=== PATIENT | female | born 1955 | race Caucasian/White ===

== ENCOUNTER 2020-11-21 17:07 | Inpatient (IN) | payer SELFPAY ==
[2020-11-21] MEDS ORDERED: Acetaminophen/HYDROcodone 325-5 MG Tab PO PRN (17:38)
[2020-11-21] MEDS ORDERED: Acetaminophen 325 MG Tab PO PRN (17:38)
--- NOTE | 2020-11-21 18:12 | PCM.HP.2 ---
H&P History of Present Illness - General Date of Service: 11/21/20 Admit Problem/Dx: Admission Diagnosis/Problem Admission Diagnosis/Problem Encephalopathy Source of Information: Patient History Limitations: Reports: No Limitations - History of Present Illness Initial Comments - Free Text/Narative: Flower is a 65-year-old female who presented to the clinic earlier today with complaints of vertigo. Her balance has been poor all day today. She did note to the clinic provider that she had stopped drinking alcohol on Friday after she had had a fall and injured the right side of her body. She was unclear if she had actually been unconscious at the time of the fall. Medical history is notable only for alcohol use disorder and tobacco use disorder. She does not regularly come in to see the doctor. Patient notes that she drinks 1 to 1.5 L of whiskey a week. She has never tried to quit drinking in the past. She denies any history of seizures or withdrawals. At this time the patient is noting her symptoms of shaking as well as a bad headache. She denies to this provider that she has had any more falls since Friday. She denies any vision changes, shortness of breath, abdominal pain. She does get some pain into her right ribs when she does try to take a deep breath in or when she tries to stand up straight. She has not been able to keep much down in the way of food over the last all days. Has had a couple episodes of emesis early in the morning stating that this is is clear to green in color. She denies any hematemesis. Denies dark stools. she is here with a very close friend of hers. He offers some collateral information on substance use. She lives at home alone but they touch base fairly often. - Related Data Allergies/Adverse Reactions: Allergies Allergy/AdvReac Type Severity Reaction Status Date / Time No Known Allergies Allergy Verified 11/21/20 17:31 Home Medications: Home Meds Calcium Citrate/Vitamin D3 [Calcium Citrate - Vit D Tablet] 1 tab PO QID 11/21/20 [History] H&P Review of Systems - Review of Systems: Review Of Systems: See Below General: Reports: Weakness HEENT: Reports: No Symptoms Pulmonary: Reports: No Symptoms Cardiovascular: Reports: No Symptoms Gastrointestinal: Reports: No Symptoms Musculoskeletal: Reports: Other (right sided rib pain) Skin: Reports: No Symptoms Psychiatric: Reports: No Symptoms Neurological: Reports: Headache, Tingling Exam - Exam Exam: See Below - Vital Signs Vital Signs: Last Vital Signs Temp 99.4 F 11/21/20 17:38 Pulse 89 11/21/20 17:38 Resp 18 11/21/20 17:38 BP 140/78 11/21/20 17:38 Pulse Ox 97 11/21/20 17:38 - Exam General: Alert, Oriented HEENT: Conjunctiva Clear, EOMI, Mucosa Moist & [place], PERRLA Neck: Supple Lungs: Clear to Auscultation, Normal Respiratory Effort Cardiovascular: Regular Rate, Regular Rhythm GI/Abdominal Exam: Normal Bowel Sounds, Soft, Non-Tender Back Exam: Other (tenderness on the right lateral ribs, no overying bruise appreciated) Extremities: Normal Inspection Skin: Warm, Dry Neurological: Cranial Nerves Intact, Reflexes Equal Bilateral, Strength Equal Bilateral, Sensation Intact Neuro Extensive - Mental Status: Alert, Oriented x3, Inattentive Neuro Extensive - Motor, Sensory, Reflexes: CN II-XII Intact, Normal Reflexes, Abnormal Gait, Other (positive rhomberg, negative pronator drift, negative heel- ivey, negative [id number], slowed hand-flap. Does have a fine tremor) Sepsis Event Note - Focused Exam Vital Signs: Vital Signs Temp Pulse Resp BP Pulse Ox 11/21/20 17:38 99.4 F 89 18 140/78 97 - Problem List (1) Wernicke encephalopathy SNOMED Code(s): 00596823 ICD Code: E51.2 - WERNICKE'S ENCEPHALOPATHY Status: Acute Current Visit: Yes (2) Alcohol use disorder SNOMED Code(s): 5104557 ICD Code: [id number] - Status: Acute Current Visit: Yes (3) Ribs, multiple fractures SNOMED Code(s): 7420259 ICD Code: S22.49XA - MULTIPLE FRACTURES OF RIBS, UNSP SIDE, INIT FOR CLOS FX Status: Acute Current Visit: Yes (4) Hypokalemia SNOMED Code(s): 04732621 ICD Code: E87.6 - HYPOKALEMIA Status: Acute Current Visit: Yes (5) Hyponatremia SNOMED Code(s): 00852247 ICD Code: E87.1 - HYPO-OSMOLALITY AND HYPONATREMIA Status: Acute Current Visit: Yes (6) Metabolic acidosis, increased anion gap SNOMED Code(s): 23912739 ICD Code: E87.2 - ACIDOSIS Status: Acute Current Visit: Yes (7) Hyperbilirubinemia SNOMED Code(s): 34981883 ICD Code: E80.6 - OTHER DISORDERS OF BILIRUBIN METABOLISM Status: Acute Current Visit: Yes (8) UTI (urinary tract infection) SNOMED Code(s): 85771785 ICD Code: N39.0 - URINARY TRACT INFECTION, SITE NOT SPECIFIED Status: Acute Current Visit: Yes (9) Macrocytic anemia SNOMED Code(s): 88224812 ICD Code: D53.9 - NUTRITIONAL ANEMIA, UNSPECIFIED Status: Acute Current Visit: Yes (10) Nicotine use disorder SNOMED Code(s): 08203381 ICD Code: F17.200 - NICOTINE DEPENDENCE, UNSPECIFIED, UNCOMPLICATED Status: Acute Current Visit: Yes Problem List Initiated/Reviewed/Updated: Yes Orders Last 24hrs: Active Orders 24 hr Category Date Time Status Admission Status [Patient Status] [ADT] Routine ADT 11/21/20 17:15 Active CIWAA Assessment [RC] Q2H Care 11/21/20 18:00 Active Dietary Supplements [RC] BIDMEALS Care 11/21/20 17:59 Ordered Notify Provider [RC] PRN Care 11/21/20 17:45 Ordered Oxygen Therapy [RC] PRN Care 11/21/20 17:38 Ordered Telemetry Monitoring [Cardiac Monitoring] [RC] 02,06,10 Care 11/21/20 17:32 Active ,14,18,22 Up With Assistance [RC] ASDIRECTED Care 11/21/20 17:38 Ordered VTE/DVT Education [RC] PER UNIT ROUTINE Care 11/21/20 17:38 Ordered Vital Signs [RC] Q4H Care 11/21/20 17:38 Ordered Regular Diet [DIET] Diet 11/21/20 Dinner Active CBC W/O DIFF,HEMOGRAM [HEME] DAILY Lab 11/22/20 07:00 Ordered COMPREHENSIVE METABOLIC PN,CMP [CHEM] DAILY Lab 11/21/20 17:45 Ordered COMPREHENSIVE METABOLIC PN,CMP [CHEM] DAILY Lab 11/22/20 07:00 Ordered COMPREHENSIVE METABOLIC PN,CMP [CHEM] DAILY Lab 11/23/20 07:00 Ordered COMPREHENSIVE METABOLIC PN,CMP [CHEM] DAILY Lab 11/24/20 07:00 Ordered MAGNESIUM [CHEM] Stat Lab 11/21/20 17:38 Ordered POTASSIUM,K [CHEM] Timed Lab 11/21/20 23:00 Ordered SODIUM,NA [CHEM] Routine Lab 11/21/20 23:00 Ordered Acetaminophen [TylenoL] Med 11/21/20 17:38 Ordered 650 mg PO Q4H PRN Acetaminophen/HYDROcodone [Dailey 325-5 MG] Med 11/21/20 17:38 Ordered 1 tab PO Q4H PRN Enoxaparin [Lovenox] Med 11/22/20 08:00 Ordered 40 mg SUBCUT DAILY Folic Acid Med 11/21/20 18:00 Ordered 1 mg PO DAILY LORazepam [Ativan] Med 11/21/20 17:45 Ordered See Protocol IV ASDIRECTED PRN Multivitamins w-Iron/Ca/FA/Min [Thera M Plus] Med 11/21/20 18:00 Ordered 1 tab PO DAILY Nicotine [Habitrol] Med 11/21/20 17:45 Ordered 14 mg TRDERM DAILY Ondansetron [Zofran ODT] Med 11/21/20 17:38 Ordered 4 mg PO Q4H PRN Potassium Acetate 40 meq Med 11/21/20 17:44 Ordered Sodium Chloride 0.9% [Normal Saline] 100 ml IV ONETIME Sodium Chloride 0.9% @ 100 MLS/HR(1000ml) Med 11/21/20 17:45 Ordered Sodium Chloride 0.9% [Normal Saline] 1,000 ml IV ASDIRECTED Sodium Chloride 0.9% [Saline Flush] Med 11/21/20 17:32 Ordered 10 ml FLUSH ASDIRECTED PRN Thiamine [Vitamin B-1] Med 11/21/20 18:00 Ordered 100 mg PO DAILY cefTRIAXone [Rocephin] Med 11/21/20 18:00 Ordered 1 gm IVPUSH DAILY Peripheral IV Insertion Adult [OM.PC] Routine Oth 11/21/20 17:32 Ordered Code Status [Resuscitation Status] Routine Resus Stat 11/21/20 17:32 Ordered Medication Orders Acetaminophen (Tylenol) 650 mg PO Q4H PRN PRN Reason: Pain (Mild 1-3)/fever Hydrocodone Bitart/Acetaminophen (Dailey 325-5 Mg) 1 tab PO Q4H PRN PRN Reason: Pain (moderate 4-6) Ceftriaxone Sodium (Rocephin) 1 gm IVPUSH DAILY [facility] Enoxaparin Sodium (Lovenox) 40 mg SUBCUT DAILY DAYSI Folic Acid (Folic Acid) 1 mg PO DAILY DAYSI Stop: 11/23/20 08:01 Sodium Chloride (Normal Saline) 1,000 mls @ 100 mls/hr IV ASDIRECTED DAYSI Potassium Acetate 40 meq/ (Sodium Chloride) 120 mls @ 25 mls/hr IV ONETIME ONE Stop: 11/21/20 22:31 Lorazepam (Ativan) 0 mg IV ASDIRECTED PRN; Protocol PRN Reason: Withdrawal Symptoms Multivitamins/Minerals (Thera M Plus) 1 tab PO DAILY [facility] Nicotine (Habitrol) 14 mg TRDERM DAILY [facility] Ondansetron HCl (Zofran Odt) 4 mg PO Q4H PRN PRN Reason: nausea, able to take PO Sodium Chloride (Saline Flush) 10 ml FLUSH ASDIRECTED PRN PRN Reason: Keep Vein Open Thiamine HCl (Vitamin B-1) 100 mg PO DAILY DAYSI Assessment/Plan Comment:: Flower is a 65-year-old female who is HD 1 for wernicke encephalopathy and electrolyte disturbances. Wernickes encephalopathy Alcohol use disorder Hypokalemia Hyponatremia Anion gap -Patient presented to the clinic this afternoon with complaints of fall and imbalance/vertigo 72 hours after alcohol cessation. Was found to have a positive Romberg sign and alcohol withdrawal tremors. She also has an associated headache and nausea/vomiting -Sodium of 122, potassium 2.3, chloride 66, CO2 of 35, anion gap 23 -Liver enzymes with an alcohol use disorder pattern with AST more than double of the ALP. She also has elevated bilirubin at 3.8. No jaundice on exam. Plan: -CIWA q2hr (now 72 hour out from last drink) -PRN ativan per protocol -Check a Mag now -NS @100mL/hr -K 40mEq/4hr -Recheck electrolytes at 2300 -B1, B9, MV daily -Tele -[facility] daily Rib Fractures (4-9?) on the right, s/p fall -Patient s/p fall on 11/18/20 while drinking. Rib xray in the clinic with fractures of multiple ribs on the right side. Patient is hemodynamically stable. No hypoxia. No flail chest. Does have significant pain with standing up and deep inspiration. Plan: -Pain control: tylneol, norco Hyperbilirubinemia -Bili total 3.8 in the clinic -May be secondary to alcoholic liver however also some concern of other etiology Plan: -Will monitor CMP daily as above Urinate tract infection -UA: Urine is cloudy with large amount of bilirubin, positive ketones, stones or blood, protein, nitrates, leukocyte esterase. A microscopic breakdown she does have 21-50 WBCs as well as many bacteria Plan: -Rocephin 1g IV daily Macrocytic Anemia -Hgb 9.4 with an MCV of 101.2 in the clinic, RBC 2.57 Plan: -Recheck CBC in the am Nicotine use disorder -cigarettes, ~1/2ppd Plan: -Tobacco replacement: patch at 14mg daily Diet: Regular DVT prophylaxis: SubQ Lovenox IV fluid: As above CODE STATUS: Full Disposition: Patient to be admitted for further evaluation and treatment of her ataxia in the setting of alcohol withdrawal. We will monitor her closely for alcohol withdrawal symptoms with CIWA scores and Ativan available. Treat her electrolyte disturbances as well with IV supplementation and a plan for recheck later tonight. Treat her UTI with IV Rocephin. Plan to recheck labs in the morning. Well get therapies on board as well. Anticipate the patient will be here for 2-3 days at a minimum. - Mortality Measure Prognosis:: Good
[2020-11-21 18:38] LABS: CHLORIDE,CL 74 mmol/L (98-107)
[2020-11-21] MEDS: Sodium Chloride 0.9% 1,000 ML IV SCH (18:40)
[2020-11-21 18:41] LABS: SODIUM,NA 119 mmol/L (136-145)
[2020-11-21] MEDS: Multivitamins with Iron/Calcium/Folic Acid/Minerals Tab PO SCH (18:45)
[2020-11-21] MEDS: Thiamine 100 MG Tab PO SCH (18:45)
[2020-11-21] MEDS: Folic Acid 1 MG Tab PO SCH (18:46)
[2020-11-21] MEDS: cefTRIAXone 1 GM Vial IVPUSH SCH (18:46)
[2020-11-21] MEDS: Nicotine 14 MG/24 Hr Patch TRDERM SCH ×2 (18:47→19:24)
[2020-11-21] MEDS: Magnesium Oxide 400 MG Tab PO SCH ×2 (18:47→21:47)
[2020-11-21] MEDS: Sodium Chloride 0.9% 10 ML Syringe FLUSH PRN (18:56)
[2020-11-21] MEDS: Potassium Chloride Riders 50 ML IV SCH ×2 (19:45→23:11)
[2020-11-21] MEDS: LORazepam 2 MG/ML SDV IV PRN (21:45)
[2020-11-22] MEDS: LORazepam 2 MG/ML SDV IV PRN ×5 (02:31→19:07)
[2020-11-22] MEDS: Sodium Chloride 0.9% 1,000 ML IV SCH ×2 (04:56→13:51)
[2020-11-22 07:25] LABS: CHLORIDE,CL 86 mmol/L (98-107)
[2020-11-22 07:30] LABS: SODIUM,NA 129 mmol/L (136-145)
[2020-11-22 07:31] LABS: ANION GAP 5.5 mmol/L (5-15)
[2020-11-22] MEDS ORDERED: Enoxaparin 40 MG/0.4 ML Syringe SUBCUT SCH (08:00)
[2020-11-22] MEDS: Multivitamins with Iron/Calcium/Folic Acid/Minerals Tab PO SCH (08:44)
[2020-11-22] MEDS: Thiamine 100 MG Tab PO SCH (08:44)
[2020-11-22] MEDS: Folic Acid 1 MG Tab PO SCH (08:44)
[2020-11-22] MEDS: Nicotine 14 MG/24 Hr Patch TRDERM SCH (08:44)
[2020-11-22] MEDS: Potassium Chloride Riders 20 MEQ in Premix Bag 1 BAG IV SCH ×4 (08:48→19:05)
[2020-11-22] MEDS: Magnesium Oxide 400 MG Tab PO SCH ×3 (09:20→19:12)
--- NOTE | 2020-11-22 10:06 | PCM.PN ---
- General Info Date of Service: 11/22/20 Admission Dx/Problem (Free Text): Admission Diagnosis/Problem Admission Diagnosis/Problem Encephalopathy Subjective Update: Flower is a 65-year-old female who is hospital day 2 for treatment of Wernicke Encephalopathy, traumatic fall with multiple rib fractures, and electrolytes disturbances. She had originally present to the clinic on 11/21/20 for c/o of Vertigo. Was found to have a positive Romberg, resting tremors, and endorsed significant EtOH use (1.5L/week of Whiskey). On admission noted last drink on 11/18/20. Patient did well overnight. Electrolytes have trended upward. She is very sleeping today. Still tremulous. Still c/o headache and nausea. Did receive a couple doses of prn ativan overnight for high CIWA. She would not wake up for full ROS this morning. Nursing reports little oral intake due to nausea. She is having good urine output. No BM's yet. - Review of Systems General: Reports: No Symptoms Gastrointestinal: Reports: Nausea Neurological: Reports: Headache, Tremors - Patient Data Vitals - Most Recent: Last Vital Signs Temp 98.2 F 11/22/20 09:00 Pulse 92 11/22/20 09:00 Resp 13 11/22/20 09:00 BP 94/58 L 11/22/20 09:00 Pulse Ox 93 L 11/22/20 09:00 Weight - Most Recent: 111 lb I&O - Last 24 Hours: Intake & Output 11/21/20 11/22/20 11/22/20 22:59 06:59 14:59 Intake Total 180 0 Output Total 650 Balance 180 -650 0 Lab Results Last 24 Hours: Laboratory Results - last 24 hr 11/21/20 11/21/20 11/21/20 Range/Units 18:01 18:01 18:03 WBC (4.0-10.0) x10^3/uL RBC (4.00-5.50) x10^6/uL Hgb (12.0-16.0) g/dL Hct (33.0-47.0) % MCV (78.0-93.0) fL MCH (26.0-32.0) pg MCHC (32.0-36.0) g/dL RDW Coeff of Mino (10.0-15.0) % Plt Count (130-400) x10^3/uL Sodium 119 L* (136-145) mmol/L Potassium 2.0 L* (3.5-5.1) mmol/L Chloride 74 L (98-107) mmol/L Carbon Dioxide 38 H (21-32) mmol/L Anion Gap 9.0 (5-15) mmol/L BUN 15 (7-18) mg/dL Creatinine 0.9 (0.55-1.02) mg/dL Est Cr Clr Drug Dosing 50.19 mL/min Estimated GFR (MDRD) > 60 Glucose 111 H (74-106) mg/dL Calcium 8.0 L (8.5-10.1) mg/dL Corrected Calcium 8.96 (8.5-10.1) mg/dL Magnesium 1.2 L (1.8-2.4) mg/dL Total Bilirubin 3.9 H (0.2-1.0) mg/dL AST 137 H (15-37) U/L ALT 41 (14-59) U/L Alkaline Phosphatase 135 H (46-116) U/L Total Protein 7.0 (6.4-8.2) g/dL Albumin 2.8 L (3.4-5.0) g/dL Globulin 4.2 Albumin/Globulin Ratio 0.67 SARS CoV-2 RNA Rapid ERAN Negative (NEGATIVE) 11/21/20 11/21/20 11/22/20 Range/Units 23:07 23:07 06:51 WBC 6.7 (4.0-10.0) x10^3/uL RBC 2.21 L (4.00-5.50) x10^6/uL Hgb 8.0 L (12.0-16.0) g/dL Hct 22.5 L (33.0-47.0) % MCV 101.8 H (78.0-93.0) fL MCH 36.2 H (26.0-32.0) pg MCHC 35.6 (32.0-36.0) g/dL RDW Coeff of Mino 13.3 (10.0-15.0) % Plt Count 233 (130-400) x10^3/uL Sodium 119 L* (136-145) mmol/L Potassium 2.7 L* (3.5-5.1) mmol/L Chloride (98-107) mmol/L Carbon Dioxide (21-32) mmol/L Anion Gap (5-15) mmol/L BUN (7-18) mg/dL Creatinine (0.55-1.02) mg/dL Est Cr Clr Drug Dosing mL/min Estimated GFR (MDRD) Glucose (74-106) mg/dL Calcium (8.5-10.1) mg/dL Corrected Calcium (8.5-10.1) mg/dL Magnesium (1.8-2.4) mg/dL Total Bilirubin (0.2-1.0) mg/dL AST (15-37) U/L ALT (14-59) U/L Alkaline Phosphatase (46-116) U/L Total Protein (6.4-8.2) g/dL Albumin (3.4-5.0) g/dL Globulin Albumin/Globulin Ratio SARS CoV-2 RNA Rapid ERAN (NEGATIVE) 11/22/20 Range/Units 06:51 WBC (4.0-10.0) x10^3/uL RBC (4.00-5.50) x10^6/uL Hgb (12.0-16.0) g/dL Hct (33.0-47.0) % MCV (78.0-93.0) fL MCH (26.0-32.0) pg MCHC (32.0-36.0) g/dL RDW Coeff of Mino (10.0-15.0) % Plt Count (130-400) x10^3/uL Sodium 129 L* D (136-145) mmol/L Potassium 2.5 L* (3.5-5.1) mmol/L Chloride 86 L D (98-107) mmol/L Carbon Dioxide 40 H (21-32) mmol/L Anion Gap 5.5 (5-15) mmol/L BUN 12 (7-18) mg/dL Creatinine 0.6 (0.55-1.02) mg/dL Est Cr Clr Drug Dosing 75.29 mL/min Estimated GFR (MDRD) > 60 Glucose 95 (74-106) mg/dL Calcium 7.4 L (8.5-10.1) mg/dL Corrected Calcium 8.84 (8.5-10.1) mg/dL Magnesium 1.6 L (1.8-2.4) mg/dL Total Bilirubin 2.3 H (0.2-1.0) mg/dL AST 87 H (15-37) U/L ALT 32 (14-59) U/L Alkaline Phosphatase 103 (46-116) U/L Total Protein 5.6 L (6.4-8.2) g/dL Albumin 2.2 L (3.4-5.0) g/dL Globulin 3.4 Albumin/Globulin Ratio 0.65 SARS CoV-2 RNA Rapid ERAN (NEGATIVE) Med Orders - Current: Current Medications Acetaminophen (Tylenol) 650 mg PO Q4H PRN PRN Reason: Pain (Mild 1-3)/fever Hydrocodone Bitart/Acetaminophen ([place] 325-5 Mg) 1 tab PO Q4H PRN PRN Reason: Pain (moderate 4-6) Last Admin: 11/21/20 21:47 Dose: 1 tab Documented by: Ceftriaxone Sodium (Rocephin) 1 gm IVPUSH Q24H [facility] Last Admin: 11/21/20 18:46 Dose: 1 gm Documented by: Enoxaparin Sodium (Lovenox) 40 mg SUBCUT DAILY [facility] Last Admin: 11/22/20 08:43 Dose: Not Given Documented by: Folic Acid (Folic Acid) 1 mg PO DAILY [facility] Stop: 11/23/20 08:01 Last Admin: 11/22/20 08:44 Dose: 1 mg Documented by: Gabapentin (Neurontin) 300 mg PO TID [facility] Sodium Chloride (Normal Saline) 1,000 mls @ 100 mls/hr IV ASDIRECTED [facility] Last Infusion: 11/22/20 08:50 Dose: 120 mls/hr Documented by: Potassium Chloride 20 meq/ (Premix) 50 mls @ 25 mls/hr IV Q2H [facility] Stop: 11/22/20 12:29 Last Admin: 11/22/20 08:48 Dose: 25 mls/hr Documented by: Thiamine HCl 500 mg/ Sodium (Chloride) 105 mls @ 200 mls/hr IV TID [facility] Stop: 11/23/20 20:32 Thiamine HCl 250 mg/ Sodium (Chloride) 102.5 mls @ 200 mls/hr IV DAILY [facility] Stop: 11/29/20 08:01 Lorazepam (Ativan) 0 mg IV ASDIRECTED PRN; Protocol PRN Reason: Withdrawal Symptoms Last Admin: 11/22/20 09:12 Dose: 2 mg Documented by: Magnesium Oxide (Magnesium Oxide) 400 mg PO BID [facility] Last Admin: 11/22/20 09:20 Dose: 400 mg Documented by: Multivitamins/Minerals (Thera M Plus) 1 tab PO DAILY [facility] Last Admin: 11/22/20 08:44 Dose: 1 tab Documented by: Nicotine (Habitrol) 14 mg TRDERM DAILY [facility] Last Admin: 11/22/20 08:44 Dose: Not Given Documented by: Ondansetron HCl (Zofran Odt) 4 mg PO Q4H PRN PRN Reason: nausea, able to take PO Sodium Chloride (Saline Flush) 10 ml FLUSH ASDIRECTED PRN PRN Reason: Keep Vein Open Last Admin: 11/21/20 18:56 Dose: 10 ml Documented by: Discontinued Medications Potassium Acetate 40 meq/ (Sodium Chloride) 120 mls @ 30 mls/hr IV ONETIME ONE Stop: 11/21/20 22:44 Last Admin: 11/21/20 19:28 Dose: Not Given Documented by: Potassium Chloride (Kcl In Water 20 Meq/50 Ml) 50 mls @ 25 mls/hr IV Q2H [facility] Stop: 11/21/20 23:44 Last Infusion: 11/22/20 04:52 Dose: Infused Documented by: Magnesium Oxide (Magnesium Oxide) 400 mg PO BID [facility] Stop: 11/22/20 08:01 Last Admin: 11/22/20 09:20 Dose: Not Given Documented by: Thiamine HCl (Vitamin B-1) 100 mg PO DAILY [facility] Last Admin: 11/22/20 08:44 Dose: 100 mg Documented by: - Exam General: Alert, Mild Distress Lungs: Clear to Auscultation, Normal Respiratory Effort Cardiovascular: Regular Rate, Regular Rhythm GI/Abdominal Exam: Normal Bowel Sounds, Soft, Tender (epigastric area) Extremities: Normal Inspection Skin: Warm, Dry Psy/Mental Status: Alert, Anxious Sepsis Event Note - Evaluation Sepsis Screening Result: No Definite Risk - Focused Exam Vital Signs: Vital Signs Temp Pulse Resp BP Pulse Ox 11/22/20 09:00 98.2 F 92 13 94/58 L 93 L 11/22/20 05:00 97.8 F 78 19 140/73 93 L 11/22/20 01:00 98.3 F 88 18 97/66 90 L - Problem List & Annotations (1) Wernicke encephalopathy SNOMED Code(s): 73608089 Code(s): E51.2 - WERNICKE'S ENCEPHALOPATHY Status: Acute Current Visit: Yes (2) Alcohol use disorder SNOMED Code(s): 0981635 Code(s): DSN8091 - Status: Acute Current Visit: Yes (3) Ribs, multiple fractures SNOMED Code(s): 3316645 Code(s): S22.49XA - MULTIPLE FRACTURES OF RIBS, UNSP SIDE, INIT FOR CLOS FX Status: Acute Current Visit: Yes (4) Hypokalemia SNOMED Code(s): 43410026 Code(s): E87.6 - HYPOKALEMIA Status: Acute Current Visit: Yes (5) Hyponatremia SNOMED Code(s): 22093391 Code(s): E87.1 - HYPO-OSMOLALITY AND HYPONATREMIA Status: Acute Current Visit: Yes (6) Metabolic acidosis, increased anion gap SNOMED Code(s): 02536253 Code(s): E87.2 - ACIDOSIS Status: Acute Current Visit: Yes (7) Hyperbilirubinemia SNOMED Code(s): 96494850 Code(s): E80.6 - OTHER DISORDERS OF BILIRUBIN METABOLISM Status: Acute Current Visit: Yes (8) UTI (urinary tract infection) SNOMED Code(s): 74942783 Code(s): N39.0 - URINARY TRACT INFECTION, SITE NOT SPECIFIED Status: Acute Current Visit: Yes (9) Macrocytic anemia SNOMED Code(s): 57399351 Code(s): D53.9 - NUTRITIONAL ANEMIA, UNSPECIFIED Status: Acute Current Visit: Yes (10) Nicotine use disorder SNOMED Code(s): 14791010 Code(s): F17.200 - NICOTINE DEPENDENCE, UNSPECIFIED, UNCOMPLICATED Status: Acute Current Visit: Yes (11) Hypercapnia SNOMED Code(s): 15244310 Code(s): R06.89 - OTHER ABNORMALITIES OF BREATHING Status: Acute Current Visit: Yes - Problem List Review Problem List Initiated/Reviewed/Updated: Yes - My Orders Last 24 Hours: My Active Orders 11/21/20 17:15 Admission Status [Patient Status] [ADT] Routine 11/21/20 Dinner Regular Diet [DIET] 11/21/20 17:32 Telemetry Monitoring [Cardiac Monitoring] [RC] 02,06,,,, Sodium Chloride 0.9% [Saline Flush] 10 ml FLUSH ASDIRECTED PRN Peripheral IV Insertion Adult [OM.PC] Routine Code Status [Resuscitation Status] Routine 11/21/20 17:38 Oxygen Therapy [RC] .PRN Up With Assistance [RC] 08,20 VTE/DVT Education [RC] PER UNIT ROUTINE Vital Signs [RC] 02,,,,, Acetaminophen [TylenoL] 650 mg PO Q4H PRN Acetaminophen/HYDROcodone [Floydada 325-5 MG] 1 tab PO Q4H PRN Ondansetron [Zofran ODT] 4 mg PO Q4H PRN 11/21/20 17:45 Notify Provider [RC] .PRN LORazepam [Ativan] See Protocol IV ASDIRECTED PRN Nicotine [Habitrol] 14 mg TRDERM DAILY Sodium Chloride 0.9% [Normal Saline] 1,000 ml IV ASDIRECTED 11/21/20 17:59 Dietary Supplements [RC] ,14 11/21/20 18:00 CIWAA Assessment [RC] Q2H Folic Acid 1 mg PO DAILY Multivitamins w-Iron/Ca/FA/Min [Thera M Plus] 1 tab PO DAILY cefTRIAXone [Rocephin] 1 gm IVPUSH Q24H 11/21/20 18:24 OT Evaluation and Treatment [CONS] Routine PT Evaluation and Treatment [CONS] Routine 11/22/20 08:00 Enoxaparin [Lovenox] 40 mg SUBCUT DAILY 11/22/20 08:30 Magnesium Oxide 400 mg PO BID Potassium Chloride Riders [KCL in Water 20 MEQ/50 ML] 20 meq Premix Bag 1 bag IV Q2H 11/22/20 09:12 Thiamine [Vitamin B-1] 500 mg Sodium Chloride 0.9% [Normal Saline] 100 ml IV TID 11/22/20 11:00 POTASSIUM,K [CHEM] Routine SODIUM,NA [CHEM] Routine 11/22/20 12:00 Gabapentin [Neurontin] 300 mg PO TID 11/23/20 07:00 CBC W/O DIFF,HEMOGRAM [HEME] Routine COMPREHENSIVE METABOLIC PN,CMP [CHEM] DAILY 11/24/20 07:00 COMPREHENSIVE METABOLIC PN,CMP [CHEM] DAILY 11/24/20 08:00 Thiamine [Vitamin B-1] 250 mg Sodium Chloride 0.9% [Normal Saline] 100 ml IV DAILY - Plan Plan:: Flower is a 65-year-old female who is HD 2 for Wernicke encephalopathy and electrolyte disturbances. Wernickes encephalopathy Alcohol use disorder Hypokalemia Hyponatremia Anion gap - resolved -Patient presented to the clinic this afternoon with complaints of fall and imbalance/vertigo 72 hours after alcohol cessation. Was found to have a positive Romberg sign and alcohol withdrawal tremors. She also has an associated headache and nausea/vomiting -Electrolytes improving overnight with supplementation (K 40mEq, Mag 400mg x2, NS), LFT's and bili slightly improved with hydration -Patient still fairly symptomatic this morning Plan: -CIWA q2hr (now 72 hour out from last drink) -Thiamine 500mg IV TID for 2 days to be followed by 250mg daily for 5 days -PRN ativan per protocol -NS @100mL/hr -K 40mEq/4hr -B9, MV daily -Tele -Recheck electrolytes around noon -CMP daily -PT, OT, ST, CM consults placed; thank you for your input Rib Fractures (4-9?) on the right, s/p fall -Patient s/p fall on 11/18/20 while drinking. Rib xray in the clinic with fractures of multiple ribs on the right side. Patient is hemodynamically stable. No hypoxia. No flail chest. Does have significant pain with standing up and deep inspiration. Plan: -Pain control: Tylenol, Floyd[place] Hyperbilirubinemia -Bili total 3.8 in the clinic -May be secondary to alcoholic liver however also some concern of other etiology Plan: -Will monitor CMP daily as above -Would likely benefit from further investigation however will hold off on imagi ng at this time Urinate tract infection Plan: -Rocephin 1g IV daily for 3 days Macrocytic Anemia -Hgb 9.4 with an MCV of 101.2 in the clinic, RBC 2.57 -Hgb down to 8.0 with IVF Plan: -Recheck CBC in the am -Holding off on DVT prophylaxis at this time -Will monitor closely for clinical signs: nursing to watch for dark BM's Hypercapnea - Patient with continued high CO2 with closing of her anion gap - She is not hypoxic on room air. Does have the known rib fractures and encephalopathy and electrolyte disturbances so plenty of reason for this -Little medical care in the past, history of tobacco use, could also have a component of COPD. Plan: - Continue to monitor with daily CMP - If not improving will likely add on ABG to further evaluate Nicotine use disorder -cigarettes, ~1/2ppd Plan: -Tobacco replacement: patch at 14mg daily, patient defers at this time Diet: Regular, as tolerated DVT prophylaxis: holding IV fluid: As above CODE STATUS: Full Disposition: Patient still symptomatic from withdrawal standpoint/wernicke. Will initiate high dose thiamine today as patient should be out of window of DT"s with reported last use. Starting gabapentin as well. Continue CIWA, prn ativan as needed. Continue monitoring/replacing electrolytes. Anticipate the patient will be here for 2-3 days at a minimum.
[2020-11-22] MEDS: Gabapentin 300 MG Cap PO SCH ×2 (11:10→19:11)
[2020-11-22] MEDS: Thiamine 500 MG in Sodium Chloride 0.9% 100 ML IV SCH ×3 (11:11→20:24)
[2020-11-22 16:23] LABS: CHLORIDE,CL 93 mmol/L (98-107); SODIUM,NA 134 mmol/L (136-145)
[2020-11-22] MEDS: cefTRIAXone 1 GM Vial IVPUSH SCH (17:45)
[2020-11-22] MEDS: Ondansetron 4 MG Tab.DIS PO PRN (19:12)
[2020-11-23 07:31] LABS: CHLORIDE,CL 97 mmol/L (98-107); SODIUM,NA 136 mmol/L (136-145)
[2020-11-23 07:32] LABS: ANION GAP 5.6 mmol/L (5-15)
[2020-11-23] MEDS: Multivitamins with Iron/Calcium/Folic Acid/Minerals Tab PO SCH (08:00)
[2020-11-23] MEDS: Ondansetron 4 MG Tab.DIS PO PRN (08:00)
[2020-11-23] MEDS: Gabapentin 300 MG Cap PO SCH (08:00)
[2020-11-23] MEDS: Folic Acid 1 MG Tab PO SCH (08:00)
[2020-11-23] MEDS: Nicotine 14 MG/24 Hr Patch TRDERM SCH (08:00)
[2020-11-23] MEDS: Magnesium Oxide 400 MG Tab PO SCH (08:00)
--- NOTE | 2020-11-23 08:46 | PCM.PN ---
- General Info Date of Service: 11/23/20 Admission Dx/Problem (Free Text): Admission Diagnosis/Problem Admission Diagnosis/Problem Encephalopathy Subjective Update: Flower is a 65-year-old female who is hospital day 2 for treatment of Wernicke Encephalopathy, traumatic fall with multiple rib fractures, and electrolytes disturbances. She had originally present to the clinic on 11/21/20 for c/o of Vertigo. Was found to have a positive Romberg, resting tremors, and endorsed significant EtOH use (1.5L/week of Whiskey). On admission noted last drink on 11/18/20. Patient did well overnight. Electrolytes have trended upward. She is very sleeping today. Still tremulous. Still c/o headache and nausea. Did receive a couple doses of prn ativan overnight for high CIWA. She would not wake up for full ROS this morning. Nursing reports little oral intake due to nausea. She is having good urine output. No BM's yet. - Patient Data Vitals - Most Recent: Last Vital Signs Temp 99.6 F 11/23/20 05:44 Pulse 101 H 11/23/20 05:44 Resp 20 11/23/20 05:44 BP 106/65 11/23/20 05:44 Pulse Ox 90 L 11/23/20 05:44 Weight - Most Recent: 111 lb I&O - Last 24 Hours: Intake & Output 11/22/20 11/23/20 11/23/20 22:59 06:59 14:59 Intake Total 1573 705 Balance 1573 705 Lab Results Last 24 Hours: Laboratory Results - last 24 hr 11/22/20 11/22/20 11/23/20 Range/Units 11:00 15:57 06:29 WBC (4.0-10.0) x10^3/uL RBC (4.00-5.50) x10^6/uL Hgb (12.0-16.0) g/dL Hct (33.0-47.0) % MCV (78.0-93.0) fL MCH (26.0-32.0) pg MCHC (32.0-36.0) g/dL RDW Coeff of Mino (10.0-15.0) % Plt Count (130-400) x10^3/uL Sodium 131 L 134 L 136 (136-145) mmol/L Potassium 3.0 L 3.0 L 3.6 (3.5-5.1) mmol/L Chloride 93 L 97 L (98-107) mmol/L Carbon Dioxide 39 H 37 H (21-32) mmol/L Anion Gap 5.0 5.6 (5-15) mmol/L BUN 9 6 L (7-18) mg/dL Creatinine 0.7 0.7 (0.55-1.02) mg/dL Est Cr Clr Drug Dosing 64.53 64.53 mL/min Estimated GFR (MDRD) > 60 > 60 Glucose 91 122 H (74-106) mg/dL Calcium 7.6 L 7.8 L (8.5-10.1) mg/dL Corrected Calcium 9.48 (8.5-10.1) mg/dL Total Bilirubin 1.1 H (0.2-1.0) mg/dL AST 104 H (15-37) U/L ALT 36 (14-59) U/L Alkaline Phosphatase 118 H (46-116) U/L Total Protein 5.3 L (6.4-8.2) g/dL Albumin 1.9 L (3.4-5.0) g/dL Globulin 3.4 Albumin/Globulin Ratio 0.56 /02/07 Range/Units 06:29 WBC 9.9 (4.0-10.0) x10^3/uL RBC 2.09 L (4.00-5.50) x10^6/uL Hgb 7.6 L (12.0-16.0) g/dL Hct 22.2 L (33.0-47.0) % MCV 106.2 H D (78.0-93.0) fL MCH 36.4 H (26.0-32.0) pg MCHC 34.2 (32.0-36.0) g/dL RDW Coeff of Mino 13.4 (10.0-15.0) % Plt Count 306 (130-400) x10^3/uL Sodium (136-145) mmol/L Potassium (3.5-5.1) mmol/L Chloride (98-107) mmol/L Carbon Dioxide (21-32) mmol/L Anion Gap (5-15) mmol/L BUN (7-18) mg/dL Creatinine (0.55-1.02) mg/dL Est Cr Clr Drug Dosing mL/min Estimated GFR (MDRD) Glucose (74-106) mg/dL Calcium (8.5-10.1) mg/dL Corrected Calcium (8.5-10.1) mg/dL Total Bilirubin (0.2-1.0) mg/dL AST (15-37) U/L ALT (14-59) U/L Alkaline Phosphatase (46-116) U/L Total Protein (6.4-8.2) g/dL Albumin (3.4-5.0) g/dL Globulin Albumin/Globulin Ratio Med Orders - Current: Current Medications Acetaminophen (Tylenol) 650 mg PO Q4H PRN PRN Reason: Pain (Mild 1-3)/fever Hydrocodone Bitart/Acetaminophen ([place] 325-5 Mg) 1 tab PO Q4H PRN PRN Reason: Pain (moderate 4-6) Last Admin: 11/21/20 21:47 Dose: 1 tab Documented by: Ceftriaxone Sodium (Rocephin) 1 gm IVPUSH Q24H [facility] Last Admin: 11/22/20 17:45 Dose: 1 gm Documented by: Enoxaparin Sodium (Lovenox) 40 mg SUBCUT DAILY [facility] Last Admin: 11/22/20 08:43 Dose: Not Given Documented by: Gabapentin (Neurontin) 300 mg PO TID [facility] Last Admin: 11/23/20 08:00 Dose: 300 mg Documented by: Sodium Chloride (Normal Saline) 1,000 mls @ 100 mls/hr IV ASDIRECTED [facility] Last Infusion: 11/22/20 20:28 Dose: 100 mls/hr Documented by: Thiamine HCl 500 mg/ Sodium (Chloride) 105 mls @ 200 mls/hr IV TID [facility] Stop: 11/23/20 20:32 Last Admin: 11/22/20 20:24 Dose: 200 mls/hr Documented by: Thiamine HCl 250 mg/ Sodium (Chloride) 102.5 mls @ 200 mls/hr IV DAILY [facility] Stop: 11/29/20 08:01 Lorazepam (Ativan) 0 mg IV ASDIRECTED PRN; Protocol PRN Reason: Withdrawal Symptoms Last Admin: 11/22/20 19:07 Dose: 1 mg Documented by: Magnesium Oxide (Magnesium Oxide) 400 mg PO BID [facility] Last Admin: 11/23/20 08:00 Dose: 400 mg Documented by: Multivitamins/Minerals (Thera M Plus) 1 tab PO DAILY [facility] Last Admin: 11/23/20 08:00 Dose: 1 tab Documented by: Nicotine (Habitrol) 14 mg TRDERM DAILY [facility] Last Admin: 11/23/20 08:00 Dose: 14 mg Documented by: Ondansetron HCl (Zofran Odt) 4 mg PO Q4H PRN PRN Reason: nausea, able to take PO Last Admin: 11/23/20 08:00 Dose: 4 mg Documented by: Sodium Chloride (Saline Flush) 10 ml FLUSH ASDIRECTED PRN PRN Reason: Keep Vein Open Last Admin: 11/21/20 18:56 Dose: 10 ml Documented by: Discontinued Medications Folic Acid (Folic Acid) 1 mg PO DAILY [facility] Stop: 11/23/20 08:01 Last Admin: 11/23/20 08:00 Dose: 1 mg Documented by: Potassium Acetate 40 meq/ (Sodium Chloride) 120 mls @ 30 mls/hr IV ONETIME ONE Stop: 11/21/20 22:44 Last Admin: 11/21/20 19:28 Dose: Not Given Documented by: Potassium Chloride (Kcl In Water 20 Meq/50 Ml) 50 mls @ 25 mls/hr IV Q2H [facility] Stop: 11/21/20 23:44 Last Infusion: 11/22/20 04:52 Dose: Infused Documented by: Potassium Chloride 20 meq/ (Premix) 50 mls @ 25 mls/hr IV Q2H [facility] Stop: 11/22/20 12:29 Last Admin: 11/22/20 12:01 Dose: 25 mls/hr Documented by: Potassium Chloride 20 meq/ (Premix) 50 mls @ 50 mls/hr IV Q2H [facility] Stop: 11/22/20 19:44 Last Admin: 11/22/20 19:05 Dose: 50 mls/hr Documented by: Magnesium Oxide (Magnesium Oxide) 400 mg PO BID [facility] Stop: 11/22/20 08:01 Last Admin: 11/22/20 09:20 Dose: Not Given Documented by: Thiamine HCl (Vitamin B-1) 100 mg PO DAILY [facility] Last Admin: 11/22/20 08:44 Dose: 100 mg Documented by: Sepsis Event Note - Evaluation Sepsis Screening Result: No Definite Risk - Focused Exam Vital Signs: Vital Signs Temp Pulse Resp BP BP Pulse Ox 11/23/20 05:44 99.6 F 101 H 20 106/65 90 L 11/23/20 02:00 94 20 101/61 94 L 11/22/20 22:40 116/75 11/22/20 22:00 99.0 F 98 20 91/49 L 92 L - Problem List & Annotations (1) Wernicke encephalopathy SNOMED Code(s): 68687358 Code(s): E51.2 - WERNICKE'S ENCEPHALOPATHY Status: Acute Current Visit: Yes (2) Alcohol use disorder SNOMED Code(s): 0598459 Code(s): EVA3828 - Status: Acute Current Visit: Yes (3) Ribs, multiple fractures SNOMED Code(s): 3469568 Code(s): S22.49XA - MULTIPLE FRACTURES OF RIBS, UNSP SIDE, INIT FOR CLOS FX Status: Acute Current Visit: Yes (4) Hypokalemia SNOMED Code(s): 08987146 Code(s): E87.6 - HYPOKALEMIA Status: Acute Current Visit: Yes (5) Hyponatremia SNOMED Code(s): 93109072 Code(s): E87.1 - HYPO-OSMOLALITY AND HYPONATREMIA Status: Acute Current Visit: Yes (6) Metabolic acidosis, increased anion gap SNOMED Code(s): 40393232 Code(s): E87.2 - ACIDOSIS Status: Acute Current Visit: Yes (7) Hyperbilirubinemia SNOMED Code(s): 73219168 Code(s): E80.6 - OTHER DISORDERS OF BILIRUBIN METABOLISM Status: Acute Current Visit: Yes (8) UTI (urinary tract infection) SNOMED Code(s): 51916929 Code(s): N39.0 - URINARY TRACT INFECTION, SITE NOT SPECIFIED Status: Acute Current Visit: Yes (9) Macrocytic anemia SNOMED Code(s): 15294141 Code(s): D53.9 - NUTRITIONAL ANEMIA, UNSPECIFIED Status: Acute Current Visit: Yes (10) Nicotine use disorder SNOMED Code(s): 98100561 Code(s): F17.200 - NICOTINE DEPENDENCE, UNSPECIFIED, UNCOMPLICATED Status: Acute Current Visit: Yes (11) Hypercapnia SNOMED Code(s): 96719408 Code(s): R06.89 - OTHER ABNORMALITIES OF BREATHING Status: Acute Current Visit: Yes - My Orders Last 24 Hours: My Active Orders 11/22/20 08:00 Enoxaparin [Lovenox] 40 mg SUBCUT DAILY 11/22/20 08:30 Magnesium Oxide 400 mg PO BID 11/22/20 09:12 Thiamine [Vitamin B-1] 500 mg Sodium Chloride 0.9% [Normal Saline] 100 ml IV TID 11/22/20 10:06 Consult to Case Management/Curriculum Facilitator [CONS] Routine 11/22/20 12:00 Gabapentin [Neurontin] 300 mg PO TID 11/23/20 08:18 Incentive Spirometry [RT Incentive Spirometry] [RC] Q2HWA Chest 2V [CR] Routine 11/24/20 06:00 CBC WITH AUTO DIFF [HEME] Routine MAGNESIUM [CHEM] Routine 11/24/20 07:00 COMPREHENSIVE METABOLIC PN,CMP [CHEM] DAILY 11/24/20 08:00 Thiamine [Vitamin B-1] 250 mg Sodium Chloride 0.9% [Normal Saline] 100 ml IV DAILY - Plan Plan:: Flower is a 65-year-old female who is HD 2 for Wernicke encephalopathy and electrolyte disturbances. Wernickes encephalopathy Alcohol use disorder Hypokalemia Hyponatremia Anion gap - resolved -Patient presented to the clinic this afternoon with complaints of fall and imbalance/vertigo 72 hours after alcohol cessation. Was found to have a positive Romberg sign and alcohol withdrawal tremors. She also has an associated headache and nausea/vomiting -Electrolytes improving overnight with supplementation (K 40mEq, Mag 400mg x2, NS), LFT's and bili slightly improved with hydration -Patient still fairly symptomatic this morning Plan: -CIWA q2hr (now 72 hour out from last drink) -Thiamine 500mg IV TID for 2 days to be followed by 250mg daily for 5 days -PRN ativan per protocol -NS @100mL/hr -K 40mEq/4hr -B9, MV daily -Tele -Recheck electrolytes around noon -CMP daily -PT, OT, ST, CM consults placed; thank you for your input Rib Fractures (4-9?) on the right, s/p fall -Patient s/p fall on 11/18/20 while drinking. Rib xray in the clinic with fractures of multiple ribs on the right side. Patient is hemodynamically stable. No hypoxia. No flail chest. Does have significant pain with standing up and deep inspiration. Plan: -Pain control: Tylenol, [place] Hyperbilirubinemia -Bili total 3.8 in the clinic -May be secondary to alcoholic liver however also some concern of other etiology Plan: -Will monitor CMP daily as above -Would likely benefit from further investigation however will hold off on imaging at this time Urinate tract infection Plan: -Rocephin 1g IV daily for 3 days Macrocytic Anemia -Hgb 9.4 with an MCV of 101.2 in the clinic, RBC 2.57 -Hgb down to 8.0 with IVF Plan: -Recheck CBC in the am -Holding off on DVT prophylaxis at this time -Will monitor closely for clinical signs: nursing to watch for dark BM's Hypercapnea - Patient with continued high CO2 with closing of her anion gap - She is not hypoxic on room air. Does have the known rib fractures and encephalopathy and electrolyte disturbances so plenty of reason for this -Little medical care in the past, history of tobacco use, could also have a component of COPD. Plan: - Continue to monitor with daily CMP - If not improving will likely add on ABG to further evaluate Nicotine use disorder -cigarettes, ~1/2ppd Plan: -Tobacco replacement: patch at 14mg daily, patient defers at this time Diet: Regular, as tolerated DVT prophylaxis: holding IV fluid: As above CODE STATUS: Full Disposition: Patient still symptomatic from withdrawal standpoint/wernicke. Will initiate high dose thiamine today as patient should be out of window of DT"s with reported last use. Starting gabapentin as well. Continue CIWA, prn ativan as needed. Continue monitoring/replacing electrolytes. Anticipate the patient will be here for 2-3 days at a minimum.
[2020-11-23] MEDS: Thiamine 500 MG in Sodium Chloride 0.9% 100 ML IV SCH (08:54)
[2020-11-23] MEDS: Sodium Chloride 0.9% 10 ML Syringe FLUSH PRN (09:00)
[2020-11-23 09:11] LABS: PCO2 ARTERIAL 43 mmHG (35-48)
[2020-11-23 09:12] LABS: BASE EXCESS ARTERIAL 14 mmol/L ((-2)-(+3)); BICARBONATE,ARTERIAL 36 mmol/L (21-28); O2 SATURATION ARTERIAL 84.1 %
[2020-11-23 09:16] LABS: PO2 ARTERIAL 43 mmHG (83-108)
--- NOTE | 2020-11-23 09:16 | CR ---
[id number] RAD/RAD Chest PA or AP 1V EXAM: SINGLE VIEW CHEST. INDICATION: COUGH INCREASING OXYGEN NEED COMPARISON: NO PREVIOUS SIMILAR EXAM IS AVAILABLE FINDINGS: Infiltrate with volume loss is seen at the left lung base Follow-up until clearing suggested The right lung is clear The cardiac silhouette is slightly enlarged IMPRESSION: PATHOLOGY AT LEFT LUNG BASE INFILTRATE AND ATELECTASIS FOLLOW-UP UNTIL CLEARING NEEDED Lalito Oliver MD 11/23/20 0914 Thank you for allowing us to participate in the care of your patient.
[2020-11-23] MEDS ORDERED: Propofol 200 MG/20 ML SDV ONE (09:30)
[2020-11-23] MEDS ORDERED: Rocuronium 50 MG/5 ML Vial ONE ×3 (09:30→10:35)
[2020-11-23] MEDS ORDERED: Midazolam 1 MG/ML 2 ML SDV ONE ×2 (09:30→10:34)
[2020-11-23] MEDS ORDERED: Succinylcholine 200 MG/10 ML MDV ONE ×2 (09:37→10:35)
[2020-11-23] MEDS ORDERED: propofoL 50 ML ONE (10:19)
[2020-11-23] MEDS ORDERED: fentaNYL 100 MCG/2 ML SDV ONE (10:34)
--- NOTE | 2020-11-23 10:44 | CR ---
[id number] RAD/RAD Chest PA or AP 1V EXAM: SINGLE VIEW CHEST. INDICATION: PLACEMENT OF ENDOTRACHEAL TUBE COMPARISON: CORRELATION IS MADE WITH THE EARLIER PLAIN FILM CHEST FINDINGS: The ET tube is in good position The NG tube in stomach There is progressive atelectasis and infiltrate at the left base Consider CT There are multiple pre-existing right side rib fractures IMPRESSION: ET TUBE AND NG TUBE IN GOOD POSITION Lalito Oliver MD 11/23/20 1043 Thank you for allowing us to participate in the care of your patient.
--- NOTE | 2020-11-23 11:15 | PCM.DCSUM1 ---
Discharge Summary - Hospital Course Free Text/Narrative:: Flower is a 65-year-old female with a past medical history of EtOH use disorder and tobacco use who is hospital day 3 for treatment of Wernicke Encephalopathy, traumatic fall with multiple rib fractures, and electrolytes disturbances. She had originally presented to the clinic on 11/21/20 for c/o of Vertigo. Vitally she was stable at that time. Was found to have a positive Romberg, resting tremors, and endorsed significant EtOH use (1.5L/week of Whiskey). She was alert and oriented and frustrated. On admission she noted her last drink was on 11/18/20. Patient did well during her first day of hospitalization. She was noted to be a little hypoxic overnight in the upper 80s requiring 1 L of O2 which improved when she woke up in the morning (?undiagnosed COPD vs SOUMYA). She did well during the day on 11/22/2020. She received normal saline and multiple potassium bumps for her electrolyte disturbances. She was on treatment for Wernickes including high dose Thiamine (100mg TID), Gapabentin 300mg TID, CIWA monitoring with prn ativan, and the typical electrolytes replacements. She did have [place] and Tylenol available for the rib pain. She also received Rocephin 1g IV daily a UTI that was found on admit. Her vital signs and electrolyte disturbances were improving. Hypercapnia was noted, but was stable/improving. She was less shaky than the previous day. Overnight the on-call provider was paged about some increasing hypoxia. She was held stable in the low 90s on 3-4 L of O2. They did stop her normal saline drip at that time. This morning her vital signs were stable other than the oxygen requirement. Her labs were stable as well; no leukocytosis, hemoglobin low (but has been low since admit and she has received a good amount of fluid so suspect component of hemodilution), electrolyte imbalances had finally been corrected (Na 120 on admit, 136 now, K 2.7 on admit, 3.6 now). She was a little bit somnolent on rounds but was arousable and would answer questions. She denied any ongoing headaches, trouble breathing, chest pains, fevers, chills. She is no longer shaking and it looks like she has been through the worst of the withdrawals. Per nursing report she has been eating, drinking, and voiding with cueing. Stools are non-melanous per nursing report. Due to a wet cough and some crackles in bilateral bases I did order a chest x-ray this morning. This did demonstrate some haziness in the bilateral lung bases. Shortly after rounds I was paged by the nursing staff to let me know that her oxygen saturation had dropped down to the 60s and that she had been placed on 12 L nonrebreather mask. O2 sats are now 80s to 90s. I ordered an ABG as well as a d-dimer. ABG returned with a pH of 7.54, PCO2 43, PO2 of 43, HCO3 of 36. Her d-dimer came back at 1.74 (upper limit of normal 0.58). Must keep in mind she d id have the rib fractures in the last week, and I have also been holding off on DVT prophylaxis due to her low hemoglobin and alcohol use disorder to monitor for potential GI bleed. Due to the instability of the patient I did reach out to one call [facility]. Spoke with trauma surgeon Dr. Clifton and informed her of the patient. They are willing to accept but would like the patient intubated prior to transfer. Rapid sequence intubation was performed with the assistance of our nurse demand generation manager as well as our local EMS crew. Post-intubation x-ray was reviewed and the ET tube appears to be a little high (this was reviewed after patient being transported) so I would recommend rechecking on arrival to receiving site. OG tube is in the stomach. Left lung is much more hazy in appearance than it was this morning. - Discharge Data Discharge Date: 11/23/20 Discharge Disposition: DC/Tfer to Other 70 Condition: Serious - Referral to Home Health Primary Care Physician: Erasto Nicholas PA-C - Discharge Diagnosis/Problem(s) (1) Wernicke encephalopathy SNOMED Code(s): 82863499 ICD Code: E51.2 - WERNICKE'S ENCEPHALOPATHY Status: Acute Current Visit: Yes (2) Alcohol use disorder SNOMED Code(s): 5810699 ICD Code: [id number] - Status: Acute Current Visit: Yes (3) Ribs, multiple fractures SNOMED Code(s): 3006335 ICD Code: S22.49XA - MULTIPLE FRACTURES OF RIBS, UNSP SIDE, INIT FOR CLOS FX Status: Acute Current Visit: Yes (4) Hypokalemia SNOMED Code(s): 53802895 ICD Code: E87.6 - HYPOKALEMIA Status: Resolved Current Visit: Yes (5) Hyponatremia SNOMED Code(s): 64164287 ICD Code: E87.1 - HYPO-OSMOLALITY AND HYPONATREMIA Status: Resolved Current Visit: Yes (6) Metabolic acidosis, increased anion gap SNOMED Code(s): 34839480 ICD Code: E87.2 - ACIDOSIS Status: Resolved Current Visit: Yes (7) Hyperbilirubinemia SNOMED Code(s): 37357482 ICD Code: E80.6 - OTHER DISORDERS OF BILIRUBIN METABOLISM Status: Acute Current Visit: Yes (8) UTI (urinary tract infection) SNOMED Code(s): 91194293 ICD Code: N39.0 - URINARY TRACT INFECTION, SITE NOT SPECIFIED Status: Acute Current Visit: Yes (9) Macrocytic anemia SNOMED Code(s): 56378130 ICD Code: D53.9 - NUTRITIONAL ANEMIA, UNSPECIFIED Status: Acute Current Visit: Yes (10) Nicotine use disorder SNOMED Code(s): 18223097 ICD Code: F17.200 - NICOTINE DEPENDENCE, UNSPECIFIED, UNCOMPLICATED Status: Acute Current Visit: Yes (11) Hypercapnia SNOMED Code(s): 84683379 ICD Code: R06.89 - OTHER ABNORMALITIES OF BREATHING Status: Acute Current Visit: Yes - Patient Summary/Data Consults: Consultations 11/21/20 18:24 OT Evaluation and Treatment [CONS] Routine PT Evaluation and Treatment [CONS] Routine 11/22/20 10:06 Consult to Case Management/Key Punch Operator [CONS] Routine - Patient Instructions Diet: NPO - Discharge Plan *PRESCRIPTION DRUG MONITORING PROGRAM REVIEWED*: Not Applicable *COPY OF PRESCRIPTION DRUG MONITORING REPORT IN PATIENT JORDANA: Not Applicable Home Medications: Home Meds Calcium Citrate/Vitamin D3 [Calcium Citrate - Vit D Tablet] 1 tab PO QID 11/21/20 [History] Forms: Interfacility Transfer EMTALA - Discharge Summary/Plan Comment DC Time >30 min.: Yes Discharge Summary/Plan Comment: Patient is being transferred to surgical ICU at [place] bed [address] Clifton (trauma surgery) as accepting physician for higher level of care given deteriorating clinical picture. She will be transferred via ground ambulance with ALS services. She is intubated and stable. - Patient Data Vitals - Most Recent: Last Vital Signs Temp 99.6 F 11/23/20 05:44 Pulse 101 H 11/23/20 05:44 Resp 20 11/23/20 05:44 BP 106/65 11/23/20 05:44 Pulse Ox 90 L 11/23/20 05:44 Weight - Most Recent: 111 lb I&O - Last 24 hours: Intake & Output 11/22/20 11/23/20 11/23/20 22:59 06:59 14:59 Intake Total 1573 705 120 Balance 1573 705 120 Lab Results - Last 24 hrs: Laboratory Results - last 24 hr 11/22/20 11/22/20 11/23/20 Range/Units 11:00 15:57 06:29 WBC (4.0-10.0) x10^3/uL RBC (4.00-5.50) x10^6/uL Hgb (12.0-16.0) g/dL Hct (33.0-47.0) % MCV (78.0-93.0) fL MCH (26.0-32.0) pg MCHC (32.0-36.0) g/dL RDW Coeff of Mino (10.0-15.0) % Plt Count (130-400) x10^3/uL D-Dimer, Quantitative (<=0.58) mg/LFEU ABG pH (7.35-7.45) pH ABG pCO2 (35-48) mmHG ABG pO2 (83-108) mmHG ABG HCO3 (21-28) mmol/L ABG Total CO2 ABG O2 Saturation % ABG O2 Content (94-98) % ABG Base Excess ((-2)-(+3)) mmol/L FiO2 Sodium 131 L 134 L 136 (136-145) mmol/L Potassium 3.0 L 3.0 L 3.6 (3.5-5.1) mmol/L Chloride 93 L 97 L (98-107) mmol/L Carbon Dioxide 39 H 37 H (21-32) mmol/L Anion Gap 5.0 5.6 (5-15) mmol/L BUN 9 6 L (7-18) mg/dL Creatinine 0.7 0.7 (0.55-1.02) mg/dL Est Cr Clr Drug Dosing 64.53 64.53 mL/min Estimated GFR (MDRD) > 60 > 60 Glucose 91 122 H (74-106) mg/dL Calcium 7.6 L 7.8 L (8.5-10.1) mg/dL Corrected Calcium 9.48 (8.5-10.1) mg/dL Total Bilirubin 1.1 H (0.2-1.0) mg/dL AST 104 H (15-37) U/L ALT 36 (14-59) U/L Alkaline Phosphatase 118 H (46-116) U/L Total Protein 5.3 L (6.4-8.2) g/dL Albumin 1.9 L (3.4-5.0) g/dL Globulin 3.4 Albumin/Globulin Ratio 0.56 11/23/20 11/23/20 11/23/20 Range/Units 06:29 08:57 09:00 WBC 9.9 (4.0-10.0) x10^3/uL RBC 2.09 L (4.00-5.50) x10^6/uL Hgb 7.6 L (12.0-16.0) g/dL Hct 22.2 L (33.0-47.0) % MCV 106.2 H D (78.0-93.0) fL MCH 36.4 H (26.0-32.0) pg MCHC 34.2 (32.0-36.0) g/dL RDW Coeff of Mino 13.4 (10.0-15.0) % Plt Count 306 (130-400) x10^3/uL D-Dimer, Quantitative 1.74 H (<=0.58) mg/LFEU ABG pH 7.54 H (7.35-7.45) pH ABG pCO2 43 (35-48) mmHG ABG pO2 43 L* (83-108) mmHG ABG HCO3 36 H (21-28) mmol/L ABG Total CO2 TNP ABG O2 Saturation 84.1 % ABG O2 Content 84 L (94-98) % ABG Base Excess 14 H ((-2)-(+3)) mmol/L FiO2 0.80 Sodium (136-145) mmol/L Potassium (3.5-5.1) mmol/L Chloride (98-107) mmol/L Carbon Dioxide (21-32) mmol/L Anion Gap (5-15) mmol/L BUN (7-18) mg/dL Creatinine (0.55-1.02) mg/dL Est Cr Clr Drug Dosing mL/min Estimated GFR (MDRD) Glucose (74-106) mg/dL Calcium (8.5-10.1) mg/dL Corrected Calcium (8.5-10.1) mg/dL Total Bilirubin (0.2-1.0) mg/dL AST (15-37) U/L ALT (14-59) U/L Alkaline Phosphatase (46-116) U/L Total Protein (6.4-8.2) g/dL Albumin (3.4-5.0) g/dL Globulin Albumin/Globulin Ratio Med Orders - Current: Current Medications Acetaminophen (Tylenol) 650 mg PO Q4H PRN PRN Reason: Pain (Mild 1-3)/fever Hydrocodone Bitart/Acetaminophen ([place] 325-5 Mg) 1 tab PO Q4H PRN PRN Reason: Pain (moderate 4-6) Last Admin: 11/21/20 21:47 Dose: 1 tab Documented by: Ceftriaxone Sodium (Rocephin) 1 gm IVPUSH Q24H [facility] Last Admin: 11/22/20 17:45 Dose: 1 gm Documented by: Enoxaparin Sodium (Lovenox) 40 mg SUBCUT DAILY [facility] Last Admin: 11/22/20 08:43 Dose: Not Given Documented by: Sodium Chloride (Normal Saline) 1,000 mls @ 100 mls/hr IV ASDIRECTED DAYSI Last Infusion: 11/22/20 20:28 Dose: 100 mls/hr Documented by: Thiamine HCl 500 mg/ Sodium (Chloride) 105 mls @ 200 mls/hr IV TID [facility] Stop: 11/23/20 20:32 Last Admin: 11/23/20 08:54 Dose: 200 mls/hr Documented by: Thiamine HCl 250 mg/ Sodium (Chloride) 102.5 mls @ 200 mls/hr IV DAILY [facility] Stop: 11/29/20 08:01 Lorazepam (Ativan) 0 mg IV ASDIRECTED PRN; Protocol PRN Reason: Withdrawal Symptoms Last Admin: 11/22/20 19:07 Dose: 1 mg Documented by: Magnesium Oxide (Magnesium Oxide) 400 mg PO BID [facility] Last Admin: 11/23/20 08:00 Dose: 400 mg Documented by: Multivitamins/Minerals (Thera M Plus) 1 tab PO DAILY [facility] Last Admin: 11/23/20 08:00 Dose: 1 tab Documented by: Nicotine (Habitrol) 14 mg TRDERM DAILY [facility] Last Admin: 11/23/20 08:00 Dose: 14 mg Documented by: Ondansetron HCl (Zofran Odt) 4 mg PO Q4H PRN PRN Reason: nausea, able to take PO Last Admin: 11/23/20 08:00 Dose: 4 mg Documented by: Sodium Chloride (Saline Flush) 10 ml FLUSH ASDIRECTED PRN PRN Reason: Keep Vein Open Last Admin: 11/23/20 09:00 Dose: 10 ml Documented by: Discontinued Medications Fentanyl (Sublimaze) Confirm Administered Dose 100 mcg .ROUTE .STK-MED ONE Stop: 11/23/20 10:35 Folic Acid (Folic Acid) 1 mg PO DAILY [facility] Stop: 11/23/20 08:01 Last Admin: 11/23/20 08:00 Dose: 1 mg Documented by: Gabapentin (Neurontin) 300 mg PO TID [facility] Last Admin: 11/23/20 08:00 Dose: 300 mg Documented by: Potassium Acetate 40 meq/ (Sodium Chloride) 120 mls @ 30 mls/hr IV ONETIME ONE Stop: 11/21/20 22:44 Last Admin: 11/21/20 19:28 Dose: Not Given Documented by: Potassium Chloride (Kcl In Water 20 Meq/50 Ml) 50 mls @ 25 mls/hr IV Q2H [facility] Stop: 11/21/20 23:44 Last Infusion: 11/22/20 04:52 Dose: Infused Documented by: Potassium Chloride 20 meq/ (Premix) 50 mls @ 25 mls/hr IV Q2H [facility] Stop: 11/22/20 12:29 Last Admin: 11/22/20 12:01 Dose: 25 mls/hr Documented by: Potassium Chloride 20 meq/ (Premix) 50 mls @ 50 mls/hr IV Q2H [facility] Stop: 11/22/20 19:44 Last Admin: 11/22/20 19:05 Dose: 50 mls/hr Documented by: Propofol (Diprivan 50 Ml) Confirm Administered Dose 50 mls @ as directed .ROUTE .STK-MED ONE Stop: 11/23/20 10:20 Magnesium Oxide (Magnesium Oxide) 400 mg PO BID [facility] Stop: 11/22/20 08:01 Last Admin: 11/22/20 09:20 Dose: Not Given Documented by: Midazolam HCl (Versed 1 Mg/Ml) Confirm Administered Dose 2 mg .ROUTE .STK-MED ONE Stop: 11/23/20 10:35 Rocuronium Dennis (Zemuron) Confirm Administered Dose 50 mg .ROUTE .STK-MED ONE Stop: 11/23/20 09:38 Rocuronium Dennis (Zemuron) Confirm Administered Dose 50 mg .ROUTE .[facility] Stop: 11/23/20 10:36 Succinylcholine Chloride (Quelicin) Confirm Administered Dose 200 mg .ROUTE .STK-MED ONE Stop: 11/23/20 09:38 Last Admin: 11/23/20 10:32 Dose: Not Given Documented by: Succinylcholine Chloride (Quelicin) Confirm Administered Dose 200 mg .ROUTE .[facility] ONE Stop: 11/23/20 10:36 Thiamine HCl (Vitamin B-1) 100 mg PO DAILY [facility] Last Admin: 11/22/20 08:44 Dose: 100 mg Documented by: - Exam Quality Assessment: Reports: Supplemental Oxygen General: Reports: Severe Distress, Lethargic Lungs: Reports: Rhonchi (bilateral lung bases) Cardiovascular: Reports: Regular Rate, Regular Rhythm GI/Abdominal Exam: Normal Bowel Sounds Skin: Reports: Warm, Dry
[2020-11-24] MEDS ORDERED: Thiamine 250 MG in Sodium Chloride 0.9% 100 ML IV SCH (08:00)
== END 2020-11-23 10:21 | disposition other institution (70) | DRG 641 ==
LOC: VM.MS 17:08
PROVIDERS: ADMIT Family Medicine; ATTEND Family Medicine
PROC: 0BH17EZ Insertion of Endotracheal Airway into Trachea, Via Natural or Artificial Opening (ICD-10-PCS; principal; 2020-11-23)
DX: E51.2 Wernicke's encephalopathy (principal); S22.41XA Multiple fractures of ribs, right side, initial encounter for closed fracture; E87.1 Hypo-osmolality and hyponatremia; E87.2 Acidosis; N39.0 Urinary tract infection, site not specified; F10.239 Alcohol dependence with withdrawal, unspecified; Z20.822 Contact with and (suspected) exposure to COVID-19; E87.6 Hypokalemia; E80.6 Other disorders of bilirubin metabolism; D53.9 Nutritional anemia, unspecified; F17.210 Nicotine dependence, cigarettes, uncomplicated; W19.XXXA Unspecified fall, initial encounter
CPT/HCPCS: 36415; 36600; 71045; 80048; 80053; 82803; 83735; 84132; 84295; 85027; 85379; A9270-GY; J0330; J0696; J2060; J2250; J2704; J3411; J3480; J7030; U0002

== ENCOUNTER 2022-12-04 18:28 | Emergency (ER) | payer MEDICARE, OTHER ==
[2022-12-04] MEDS ORDERED: Sodium Chloride 0.9% 10 ML Syringe FLUSH PRN (18:32)
[2022-12-04 19:19] LABS: ANION GAP 13.8 mmol/L (5-15); CHLORIDE,CL 96 mmol/L (98-107); ESTIMATED GFR 81 mL/min (>=60); SODIUM,NA 135 mmol/L (136-145)
== END 2022-12-04 19:15 | disposition short-term general hospital (02) ==
LOC: VM.ED 18:28
DX: C71.9 Malignant neoplasm of brain, unspecified (principal)
CPT/HCPCS: 70450; 80053; 84484; 85025; 85610; 85730; 99284; 99285